=== PATIENT | female | born 1955 | race Caucasian/White ===

== ENCOUNTER 2016-12-28 09:12 | Emergency (ER) | payer SELFPAY ==
[~2016-12-28] VITALS: Ht 167.6 cm; Wt 140.3 kg
[2016-12-28 09:15] VITALS: BP 199/115; PULSE 90; RESP 18; TEMP 97.7; O2SAT 97
[2016-12-28 09:33] VITALS: BP 188/90; PULSE 86; RESP 18; O2SAT 96
[2016-12-28] MEDS ORDERED: ZITHTAB PO (10:05)
--- NOTE | 2016-12-28 10:05 | PD ---
HPI Chief Complaint: Cold / Flu Symptoms Time Seen by Provider: 10:00 Travel History International Travel<30 days: No Contact w/Intl Traveler<30days: No Traveled to known affect area: No History of Present Illness HPI 61-year-old female complains of persistent cough. Patient states that the cough started yesterday. Patient states the cough is persistent and mildly productive. Patient denies any fever chills. Patient denies any chest pain or shortness of breath. Patient states that she also has sore throat. Patient denies any nausea vomiting diarrhea. PFSH Past Medical History Medical History: Denies Significant Hx Diminished Hearing: No Tetanus Vaccination: < 5 Years ?: Not LMP: MENOPAUSAL Past Surgical History Surgical History: No Previous Surgery Social History Alcohol Use: No Tobacco Use: No Substance Use: No Allergies-Medications (Allergen,Severity, Reaction): Coded Allergies: No Known Allergies (Unverified , 12/28/16) Reported Meds & Prescriptions Reported Meds & Active Scripts Active No Active Prescriptions or Reported Medications Review of Systems General / Constitutional: No: Fever Eyes: No: Visual changes HENT: No: Headaches Cardiovascular: No: Chest Pain or Discomfort Respiratory: Positive: Cough, No: Shortness of Breath Gastrointestinal: No: Abdominal Pain Genitourinary: No: Dysuria Musculoskeletal: No: Pain Skin: No Rash Neurologic: No: Weakness Psychiatric: No: Depression Endocrine: No: Polydipsia Hematologic/Lymphatic: No: Easy Bruising Physical Exam Narrative GENERAL: Well-nourished, well-developed patient. SKIN: Focused skin assessment warm/dry. HEAD: Normocephalic. EYES: No scleral icterus. No injection or drainage. Throat: Nonerythematous. NECK: Supple, trachea midline. No JVD or lymphadenopathy. CARDIOVASCULAR: Regular rate and rhythm without murmurs, gallops, or rubs. RESPIRATORY: Breath sounds equal bilaterally. No accessory muscle use. GASTROINTESTINAL: Abdomen soft, non-tender, nondistended. MUSCULOSKELETAL: No cyanosis, or edema. BACK: Nontender without obvious deformity. No CVA tenderness. Data Data Last Documented VS Vital Signs Date Time Temp Pulse Resp B/P Pulse Ox O2 Delivery O2 Flow Rate FiO2 12/28/16 09:33 86 18 188/90 96 Room Air 12/28/16 09:15 97.7 MDM Medical Decision Making Medical Screen Exam Complete: Yes Emergency Medical Condition: Yes Differential Diagnosis Differential diagnosis including URI, bronchitis, pneumonia. Narrative Course 61-year-old female with persistent cough. Diagnosis Primary Impression: Bronchitis Patient Instructions: General Instructions Additional Instructions: Z-Russ as directed. Tylenol for fever. [id number] cough medication as directed. Follow-up with personal physician. Return if worse. Med/Other Pt SpecificInfo: Prescription(s) given Scripts Azithromycin (Zithromax Z-Russ)250 Mg [id number] Mg PO DIRECTED #1 DSPK 500 MG (2 tabs) day 1, then 1 tab days 2-5. Prov:Hoang Hoyos MD 12/28/16 Disposition: 01 DISCHARGE HOME Condition: Stable Hoang Hoyos MD December 28, 2016 10:05
== END 2016-12-28 10:15 | disposition home or self-care (01) ==
LOC: PHED 09:12
DX: J40 Bronchitis, not specified as acute or chronic (principal)
CPT/HCPCS: 99283

== ENCOUNTER 2017-01-22 15:06 | Emergency (ER) | payer SELFPAY ==
[~2017-01-22] VITALS: Ht 167.6 cm; Wt 139.0 kg
[~2017-01-22 15:06] MED LIST: ZITHTAB PO
[2017-01-22 15:13] VITALS: BP 167/92; PULSE 82; RESP 16; TEMP 97.8; O2SAT 97
[2017-01-22] MEDS ORDERED: SODIUM CHLOR 0.9% 1000 ML INJ 1,000 ML IV SCH (16:00)
[2017-01-22] MEDS ORDERED: SODIUM CHLORIDE 0.9% FLUSH 10 ML FLUSH IV FLUSH PRN (16:00)
[2017-01-22] MEDS ORDERED: MECLIZINE HCL 25 MG TAB PO ONE (16:00)
--- NOTE | 2017-01-22 16:03 | PD ---
HPI Chief Complaint: Dizziness Time Seen by Provider: 15:55 Travel History International Travel<30 days: No Contact w/Intl Traveler<30days: No Traveled to known affect area: No History of Present Illness HPI 62-year-old female with no significant past medical history air for evaluation of lightheadedness/dizziness, nausea, and vomiting. Symptoms have been going on for last 2 days, are made worse with movements, better with rest. The patient describes more of a lightheadedness feeling rather than dizziness. She denies headache. No visual complaints. She does have some tenderness, however has had this for a long time. She tells me she believe she may have a middle ear infection. No changes in hearing. No chest pain or dyspnea. No melena or hematochezia. Emesis is nonbloody. PFSH Past Medical History Diminished Hearing: No Tetanus Vaccination: > 5 Years Influenza Vaccination: No ?: Not Social History Alcohol Use: No Tobacco Use: No Substance Use: No Allergies-Medications (Allergen,Severity, Reaction): Coded Allergies: No Known Allergies (Unverified , 01/22/17) Reported Meds & Prescriptions Reported Meds & Active Scripts Active No Active Prescriptions or Reported Medications Review of Systems Except as stated in HPI: all other systems reviewed are Neg Physical Exam Narrative GENERAL: Well-developed, well-nourished, comfortable, no acute distress. SKIN: Focused skin assessment warm/dry. No rash. No pallor. HEAD: Atraumatic. Normocephalic. EYES: Pupils equal, round, 3 mm, reactive to light. EOMI. No nystagmus. No scleral icterus. No injection or drainage. ENT: Mucous membranes pink and moist. NECK: Trachea midline. No JVD. CARDIOVASCULAR: Regular rate and rhythm. No murmur appreciated. RESPIRATORY: No accessory muscle use. Clear to auscultation. Breath sounds equal bilaterally. GASTROINTESTINAL: Abdomen soft, non-tender, nondistended. MUSCULOSKELETAL: No obvious deformities. No clubbing. No cyanosis. No edema. NEUROLOGICAL: Awake and alert. No obvious cranial nerve deficits. Motor grossly within normal limits. Normal speech. No focal deficits. PSYCHIATRIC: Appropriate mood and affect; insight and judgment normal. Data Data Last Documented VS Vital Signs Date Time Temp Pulse Resp B/P Pulse Ox O2 Delivery O2 Flow Rate FiO2 6/21/17 16:14 97 Room Air 01/22/17 15:44 89 01/22/17 15:13 97.8 16 167/92 Orders Basic Metabolic Panel (Bmp) (01/22/17 16:00) Complete Blood Count With Diff (01/22/17 16:00) Urinalysis - C+S If Indicated (01/22/17 16:00) Iv Access Insert/Monitor (01/22/17 16:00) Ecg Monitoring (01/22/17 16:00) Oximetry (01/22/17 16:00) Sodium Chlor 0.9% 1000 Ml Inj (Ns 1000 M (01/22/17 16:00) Sodium Chloride 0.9% Flush (Ns Flush) (01/22/17 16:00) Meclizine (Antivert) (01/22/17 16:00) Ct Brain W/O Iv Contrast(Rout) (01/22/17 ) Electrocardiogram (01/22/17 ) Urine Culture (01/22/17 17:07) Labs Laboratory Tests Test 01/22/17 01/22/17 16:36 16:43 White Blood Count 7.1 TH/MM3 Red Blood Count 4.90 MIL/MM3 Hemoglobin 13.3 GM/DL Hematocrit 39.6 % Mean Corpuscular Volume 80.7 FL Mean Corpuscular Hemoglobin 27.2 PG Mean Corpuscular Hemoglobin 33.7 % Concent Red Cell Distribution Width 13.4 % Platelet Count 303 TH/MM3 Mean Platelet Volume 8.2 FL Neutrophils (%) (Auto) 69.2 % Lymphocytes (%) (Auto) 21.1 % Monocytes (%) (Auto) 7.1 % Eosinophils (%) (Auto) 1.7 % Basophils (%) (Auto) 0.9 % Neutrophils # (Auto) 4.9 TH/MM3 Lymphocytes # (Auto) 1.5 TH/MM3 Monocytes # (Auto) 0.5 TH/MM3 Eosinophils # (Auto) 0.1 TH/MM3 Basophils # (Auto) 0.1 TH/MM3 CBC Comment DIFF FINAL Differential Comment Sodium Level 140 MEQ/L Potassium Level 3.7 MEQ/L Chloride Level 104 MEQ/L Carbon Dioxide Level 29.1 MEQ/L Anion Gap 7 MEQ/L Blood Urea Nitrogen 19 MG/DL Creatinine 0.66 MG/DL Estimat Glomerular Filtration 90 ML/MIN Rate Random Glucose 94 MG/DL Calcium Level 8.8 MG/DL Urine Color YELLOW Urine Turbidity HAZY Urine pH 6.5 Urine Specific [place] 1.024 Urine Protein NEG mg/dL Urine Glucose (UA) NEG mg/dL Urine Ketones NEG mg/dL Urine Occult Blood TRACE Urine Nitrite NEG Urine Bilirubin NEG Urine Leukocyte Esterase SMALL Urine RBC 0-3 /hpf Urine WBC 3-5 /hpf Urine Squamous Epithelial > 8 /hpf Cells Urine Bacteria FEW /hpf Urine Mucus FEW /lpf Microscopic Urinalysis Comment CULT NOT INDICATED MDM Medical Decision Making Medical Screen Exam Complete: Yes Emergency Medical Condition: Yes Medical Record Reviewed: Yes Interpretation(s) EKG: Sinus, rate 74, normal axis, normal intervals, no acute ischemic abnormality. Differential Diagnosis Vertigo, labyrinthitis, Mnire's disease, metabolic abnormality, dehydration, anemia, UTI, intracranial abnormality Narrative Course Initial vital signs show heart rate 82, blood pressure 167/92, pulse ox 97% on room air, oral temp of 97.8F. CBC is unremarkable. BMP is unremarkable. UA: Hazy urine, trace occult blood, small leukocyte esterase, greater than 8 epithelial cells, few bacteria, few mucus CT head: No acute disease. Patient was made aware of all findings. She was given meclizine and normal saline IV and is feeling somewhat improved. Given her symptoms with her UA findings, I am going to treat her for UTI. Urine culture sent. Patient feels well enough to be discharged home. She has been given information to the [facility] to follow-up with as an outpatient. She was made aware that her blood pressure is slightly elevated here. She was informed on when to return to the emergency department. She verbalizes understanding and agreement with plan. Diagnosis Primary Impression: Vertigo Additional Impressions: UTI (urinary tract infection) Qualified Code: N39.0 - Urinary tract infection with hematuria, site unspecified Hematuria Referrals: [facility] 3 days Additional Instructions: Follow-up with a primary care physician this week. Return to the emergency department for worsening symptoms or any other concerns as discussed. Scripts Meclizine 25 Mg Tab25 Mg PO TID PRN (VERTIGO) #15 TAB Ref 0 Prov:Dillan Mari MD 01/22/17 Ciprofloxacin (Cipro)500 Mg Fui398 Mg PO BID 5 Days Ref 0 Prov:Dillan Mari MD 6/21/17 Disposition: 01 DISCHARGE HOME Condition: Stable Dillan Mari MD Jan 22, 2017 16:03
[2017-01-22 16:14] VITALS: O2SAT 97
[2017-01-22 16:42] LABS: AUTOMATED NEUTROPHIL # 4.9 TH/MM3 (1.8-7.7); BASOPHIL # 0.1 TH/MM3 (0-0.2); BASOPHIL % 0.9 % (0.0-2.0); EOSINOPHIL # 0.1 TH/MM3 (0-0.4); EOSINOPHIL % 1.7 % (0.0-4.0); HEMATOCRIT 39.6 % (35.0-46.0); HEMO FLAGS DIFF FINAL; LYMPH % 21.1 % (9.0-44.0); LYMPHOCYTE # 1.5 TH/MM3 (1.0-4.8); MEAN CELL VOLUME 80.7 FL (80.0-100.0); MEAN CORPUSCULAR HEMOGLOBIN 27.2 PG (27.0-34.0); MEAN CORPUSCULAR HGB CONC 33.7 % (32.0-36.0); MONO % 7.1 % (0.0-8.0); NEUT % 69.2 % (16.0-70.0); PLATELET COUNT 303 TH/MM3 (150-450); RED CELL DISTRIBUTION WIDTH 13.4 % (11.6-17.2); WHITE BLOOD COUNT 7.1 TH/MM3 (4.0-11.0)
[2017-01-22 16:52] LABS: POTASSIUM 3.7 MEQ/L (3.5-5.1)
[2017-01-22 16:54] LABS: BLOOD, URINE TRACE (NEG); GLUCOSE,URINE NEG (NEG); KETONE, URINE NEG (NEG); NITRITE,URINE NEG (NEG); PH, URINE 6.5 (5.0-8.5)
[2017-01-22 16:55] LABS: BICARBONATE 29.1 MEQ/L (21.0-32.0)
--- NOTE | 2017-01-22 16:55 | RADRPT ---
EXAM DATE/TIME: 01/22/2017 16:12 [facility] COMPARISON: No previous studies available for comparison. INDICATIONS : Dizziness. RADIATION DOSE: 64.11 CTDIvol (mGy) MEDICAL HISTORY : None SURGICAL HISTORY : None. ENCOUNTER: Initial ACUITY: 1 day PAIN SCALE: 0/10 LOCATION: cranial TECHNIQUE: Multiple contiguous axial images were obtained of the head. Using automated exposure control and adj ustment of the mA and/or kV according to patient size, radiation dose was kept as low as reasonably a chievable to obtain optimal diagnostic quality images. FINDINGS: CEREBRUM: The ventricles are normal for age. There is a patent cavum septum pellucida. No evidence of midline s hift, mass lesion, hemorrhage or acute infarction. No extra-axial fluid collections are seen. POSTERIOR FOSSA: The cerebellum and brainstem are intact. The 4th ventricle is midline. The cerebellopontine angle i s unremarkable. EXTRACRANIAL: The visualized portion of the orbits is intact. SKULL: The calvaria is intact. No evidence of skull fracture. CONCLUSION: No acute disease. Vickey Mcpherson MD on January 22, 2017 at 16:52 Board Certified Radiologist. This report was verified electronically.
[2017-01-22 17:05] LABS: RBC, URINE 0-3 /hpf (0-3); SQUAMOUS EPITHELIAL CELL URINE > 8 /hpf (0-5); URINE COLOR YELLOW (YELLW/STRAW)
[2017-01-22 17:06] LABS: BACTERIA, URINE FEW /hpf; COMMENT (UR) CULT NOT INDICATED; CULTURE IF INDICATED CULT NOT INDICATED; MUCUS URINE FEW /lpf (OCC)
[2017-01-22] MEDS ORDERED: MECL-62 PO (17:14)
[2017-01-22] MEDS ORDERED: CIPR-9 PO (17:14)
[2017-01-22] MEDS ORDERED: cefTRIAXone INJ 1,000 MG in SODIUM CHLORIDE 0.9% INJ 100 ML IV ONE (17:15)
[2017-01-22 18:14] VITALS: BP 202/81; PULSE 74; RESP 18; O2SAT 98
--- NOTE | 2017-01-23 13:45 | EKG ---
Date Performed: 01/22/2017 Time Performed: 16:09:48 PTAGE: 62 years EKG: Sinus rhythm NORMAL ECG NO PREVIOUS TRACING DOCTOR: Margaret Boss Interpretating Date/Time 01/23/2017 13:42:53
== END 2017-01-22 18:21 | disposition home or self-care (01) ==
LOC: PHED 15:06
DX: R42 Dizziness and giddiness (principal); N39.0 Urinary tract infection, site not specified; B95.1 Streptococcus, group B, as the cause of diseases classified elsewhere
CPT/HCPCS: 70450; 80048; 81001; 85025; 86403; 87086; 93005; 96361; 96365; 99285; J0696; J7030